=== PATIENT | male | born 1955 | race Caucasian/White ===

== ENCOUNTER 2020-11-02 11:45 | Day surgery (SDC) | payer MEDICARE, OTHER ==
[2020-10-29 09:33] LABS: BASOPHILS # (AUTO) 0.1 X10'3 (0-0.2); BASOPHILS % (AUTO) 0.7 % (0-1); EOSINOPHILS # (AUTO) 0.1 X10'3 (0-0.9); EOSINOPHILS % (AUTO) 1.4 % (0-6); HEMATOCRIT 47.8 % (42.0-52.0); HEMOGLOBIN 16.1 g/dl (14.0-17.9); LYMPHOCYTES # (AUTO) 2.5 X10'3 (1.1-4.8); LYMPHOCYTES % (AUTO) 28.8 % (21-51); MEAN CORPUSCULAR HEMOGLOBIN 30.4 PG (27.0-31.0); MEAN CORPUSCULAR HGB CONC 33.6 g/dL (33.0-36.5); MEAN CORPUSCULAR VOLUME 90.5 FL (78-98); MEAN PLATELET VOLUME 9.2 FL (7.4-10.4); MONOCYTES # (AUTO) 0.7 X10'3 (0-0.9); MONOCYTES % (AUTO) 8.1 % (2-12); NEUTROPHILS # (AUTO) 5.2 X10'3 (1.8-7.7); PLATELET COUNT 256 X10'3 (140-440); RED BLOOD COUNT 5.28 X10'6 (4.70-6.10); RED CELL DISTRIBUTION WIDTH 13.6 % (11.5-14.5); WHITE BLOOD COUNT 8.6 X10'3 (4.5-11.0)
[2020-10-29 09:46] LABS: ALBUMIN 3.8 G/DL (3.4-5.0); ANION GAP 7 (8-16); BLOOD UREA NITROGEN 22 MG/DL (7-18); CALCIUM 8.6 MG/DL (8.5-10.1); CHLORIDE 105 MMOL/L (99-107); CREATININE 1.05 MG/DL (0.60-1.10); GLUCOSE 139 MG/DL (70-104); POTASSIUM 4.5 MMOL/L (3.5-5.1); SODIUM 137 MMOL/L (135-145); TOTAL CARBON DIOXIDE 24.6 MMOL/L (24-32); eGFR 71 ML/MIN
[2020-10-29 09:47] LABS: PARTIAL THROMBOPLASTIN TIME 27 SECONDS (22-32)
[~2020-11-02] VITALS: Ht 165.1 cm; Wt 114.1 kg
[2020-11-02] MEDS ORDERED: normal saline 1,000 ML IV SCH (12:10)
[2020-11-02] MEDS ORDERED: diphenhydrAMINE 25mg capsule PO PRN (12:10)
[2020-11-02] MEDS ORDERED: FENO145T25 PO (12:10)
[2020-11-02] MEDS ORDERED: LORazepam 0.5 MG tablet PO PRN (12:10)
[2020-11-02] MEDS ORDERED: METF-950 PO (12:10)
[2020-11-02] MEDS ORDERED: LIDOcaine/PRILOcaine 5gm cream TP ONE (12:10)
[2020-11-02] MEDS ORDERED: METO25TA6 PO (12:12)
[2020-11-02] MEDS ORDERED: NITR0.4T48 SL (12:12)
[2020-11-02] MEDS ORDERED: ASPI-611 PO (12:12)
[2020-11-02 12:13] VITALS: BP 137/55
[2020-11-02] MEDS ORDERED: LIDOcaine 1% (10mg/ml) 2ml vial ONE (12:22)
[2020-11-02] MEDS ORDERED: verapamil 2.5 mg/ml inj IV ONE (13:10)
[2020-11-02] MEDS ORDERED: nitroGLYCERIN-Tridil 50MG/D5W 250 ML IV ONE (13:10)
[2020-11-02] MEDS ORDERED: fentaNYL/PF 50MCG/1 ML 2ML syringe ONE (13:11)
[2020-11-02] MEDS ORDERED: iohexol 350MG/ML 100ml bottle IV ONE (13:11)
[2020-11-02] MEDS ORDERED: heparin 1,000unit/ml 10ml vial 10 ML ONE (13:11)
[2020-11-02] MEDS ORDERED: LIDOcaine 1% (10mg/ml)w/preservative injection 20ml MDV ONE (13:11)
[2020-11-02] MEDS ORDERED: midazolam 2 mg/2 ml injection ONE (13:11)
[2020-11-02 14:03] VITALS: BP 155/67
[2020-11-02 14:16] VITALS: BP 173/69
[2020-11-02 14:31] VITALS: BP 127/54
[2020-11-02 14:45] VITALS: BP 127/50
== END 2020-11-02 15:10 | disposition home or self-care (01) ==
LOC: SSTAY O 11:45
PROVIDERS: ATTEND Internal Medicine Interventional Cardiology
DX: R94.39 Abnormal result of other cardiovascular function study (principal); R06.02 Shortness of breath; I25.10 Atherosclerotic heart disease of native coronary artery without angina pectoris; I25.82 Chronic total occlusion of coronary artery; G47.33 Obstructive sleep apnea (adult) (pediatric); E78.5 Hyperlipidemia, unspecified; E11.9 Type 2 diabetes mellitus without complications; I65.22 Occlusion and stenosis of left carotid artery; I27.20 Pulmonary hypertension, unspecified; Z87.891 Personal history of nicotine dependence; Z88.0 Allergy status to penicillin; Z79.84 Long term (current) use of oral hypoglycemic drugs; Z79.899 Other long term (current) drug therapy; Z79.82 Long term (current) use of aspirin; Z79.01 Long term (current) use of anticoagulants; Z82.49 Family history of ischemic heart disease and other diseases of the circulatory system
CPT/HCPCS: 36415; 80048; 82948; 85025; 85610; 85730; 93005; 93458; 99152; C1769; C1894; J1644; J2001; J2250; J3010; J7030; Q0163; Q9967; 99153; A4620; A5120; A6258; J3490

== ENCOUNTER 2022-01-08 14:21 | Inpatient (IN) | payer MEDICARE, OTHER ==
[~2022-01-08] VITALS: Ht 167.6 cm; Wt 109.9 kg
[~2022-01-08 14:21] MED LIST: ASPI-611 PO; FENO145T25 PO; LOP25T PO; METF-1203 PO; NITR0.4T48 SL
[2022-01-08 15:07] LABS: BASOPHILS # (AUTO) 0.1 X10'3 (0-0.2); BASOPHILS % (AUTO) 0.4 % (0-1); EOSINOPHILS # (AUTO) 0.2 X10'3 (0-0.9); EOSINOPHILS % (AUTO) 1.7 % (0-6); HEMATOCRIT 47.3 % (42.0-52.0); HEMOGLOBIN 15.9 g/dl (14.0-17.9); LYMPHOCYTES # (AUTO) 3.2 X10'3 (1.1-4.8); LYMPHOCYTES % (AUTO) 22.5 % (21-51); MEAN CORPUSCULAR HEMOGLOBIN 30.6 PG (27.0-31.0); MEAN CORPUSCULAR HGB CONC 33.6 g/dL (33.0-36.5); MEAN CORPUSCULAR VOLUME 91.1 FL (78-98); MEAN PLATELET VOLUME 8.9 FL (7.4-10.4); NEUTROPHILS # (AUTO) 9.6 X10'3 (1.8-7.7); NEUTROPHILS % (AUTO) 68.4 % (42-75); PLATELET COUNT 253 X10'3 (140-440); RED CELL DISTRIBUTION WIDTH 13.8 % (11.5-14.5)
[2022-01-08 15:11] LABS: ALANINE AMINOTRANSFERASE 40 U/L (12-78); ALBUMIN 4.2 G/DL (3.4-5.0); ALBUMIN/GLOBULIN RATIO 1.3 (1.1-1.5); ALKALINE PHOSPHATASE 41 IU/L (46-116); ANION GAP 8 (8-16); ASPARTATE AMINO TRANSFERASE 57 U/L (10-37); BILIRUBIN,TOTAL 0.3 MG/DL (0.1-1.0); BLOOD UREA NITROGEN 26 MG/DL (7-18); BUN/CREATININE RATIO 26.3 (5.4-32.0); CALCIUM 8.8 MG/DL (8.5-10.1); CHLORIDE 108 MMOL/L (99-107); CREATININE 0.99 MG/DL (0.60-1.10); GLUCOSE 132 MG/DL (70-104); POTASSIUM 4.3 MMOL/L (3.5-5.1); SODIUM 140 MMOL/L (135-145); TOTAL CARBON DIOXIDE 23.7 MMOL/L (24-32); TOTAL PROTEIN 7.5 G/DL (6.4-8.2); eGFR 75 ML/MIN
[2022-01-08] MEDS ORDERED: enoxaparin 100mg/ml syringe SUBCUT ONE (15:25)
[2022-01-08] MEDS ORDERED: normal saline 1000ML IV soln IVB ONE (15:35)
[2022-01-08] MEDS ORDERED: heparin 10,000 units/1 ML INJ IV ONE ×2 (15:40→16:20)
[2022-01-08] MEDS ORDERED: MESSAGE TO PHARMACY PO ONE (16:20)
[2022-01-08] MEDS ORDERED: acetaminophen 325mg tablet PO PRN (16:20)
[2022-01-08] MEDS ORDERED: nitroGLYCERIN 0.4mg SUBLingual tab SL PRN (16:20)
[2022-01-08] MEDS ORDERED: insulin Lispro (HumaLOG) vial - multi-dose SQ SCH (16:20)
[2022-01-08] MEDS ORDERED: HYDROcodone/acetaminophen 5mg/325mg tablet PO PRN (16:20)
[2022-01-08] MEDS ORDERED: PERFLUTREN PROTEIN-A MICROSPHR (Optison) 0.22 MG/ML 3ML VIAL IV ONE (16:20)
[2022-01-08] MEDS ORDERED: heparin 25,000 UNIT/250ml bag 250 ML IV SCH (16:20)
[2022-01-08] MEDS ORDERED: mag hydrox/Alum hydrox/simeth 30ml oral suspension PO PRN (16:20)
[2022-01-08] MEDS ORDERED: magnesium 2GM in 50ml NS 50 ML IV PRN (16:20)
[2022-01-08] MEDS ORDERED: magnesium hydroxide 30ml (MOM) UD suspension PO PRN (16:20)
[2022-01-08] MEDS ORDERED: heparin 10,000 units/1 ML INJ IV PRN (16:20)
[2022-01-08] MEDS ORDERED: potassium CL 10mEq/100ml bag 100 ML IV PRN (16:20)
[2022-01-08] MEDS ORDERED: metoprolol tartrate 1mg/ml inj IV PRN (16:20)
[2022-01-08] MEDS ORDERED: regadenoson 0.4mg/5ml syringe IV PRN (16:20)
[2022-01-08] MEDS ORDERED: naloxone 0.4 mg/ml inj IV PRN (16:20)
[2022-01-08] MEDS ORDERED: aminophylline 500mg/20ml vial IV PRN (16:20)
[2022-01-08] MEDS ORDERED: ondansetron/PF 4mg/2ml inj IV PRN (16:20)
[2022-01-08] MEDS ORDERED: potassium Cl 20 mEq SR tablet PO PRN ×2 (16:20)
[2022-01-08] MEDS ORDERED: dextrose 50%-water 50ml dispensing syringe IV PRN ×2 (16:20)
[2022-01-08] MEDS ORDERED: glucagon, human recombinant 1mg kit SUBCUT PRN (16:20)
[2022-01-08] MEDS ORDERED: magnesium 4gm in 100ml NS 100 ML IV PRN (16:20)
[2022-01-08] MEDS ORDERED: DEXTROSE 15 GM of carb/4 tabs (each vial/BOTTLE has 4 tablets) PO PRN ×2 (16:20)
[2022-01-08] MEDS ORDERED: HYDROcodone/acetaminophen 10/325mg tab PO PRN (16:20)
[2022-01-08] MEDS ORDERED: nitroGLYCERIN 0.4mg/hour patch TD ONE (16:25)
[2022-01-08] MEDS: aspirin 81mg tab.chew PO SCH (16:36)
[2022-01-08] MEDS ORDERED: ATOR40TA72 PO (16:46)
[2022-01-08] MEDS ORDERED: LOSA50TA64 PO (16:46)
[2022-01-08] MEDS ORDERED: FURO20TA4 PO (17:23)
[2022-01-08] MEDS: heparin 25,000 UNIT/250ml bag 250 ML IV SCH (17:23)
[2022-01-08] MEDS ORDERED: METF-436 PO (17:24)
[2022-01-08] MEDS ORDERED: carVEDilol 3.125mg tablet PO ONE (17:32)
[2022-01-08] MEDS: losartan 50mg tablet PO SCH (18:26)
--- NOTE | 2022-01-08 18:57 | NUR ---
troponin [id number] per lab. Current value decreased from previous
[2022-01-08] MEDS: docusate sod 100mg capsule PO SCH (20:00)
[2022-01-08] MEDS: K and/or MAG REPLACEMENT MC SCH (20:00)
[2022-01-08] MEDS: insulin glargine (Lantus) pen - multi-dose SQ SCH (21:00)
[2022-01-09] VITALS (13 sets, daily range): BP systolic 103–144; BP diastolic 5–93
[2022-01-09] MEDS: heparin 10,000 units/1 ML INJ IV PRN ×2 (05:21→16:07)
[2022-01-09 05:58] LABS: CLARITY,URINE CLEAR (Clear); COLOR,URINE YELLOW (Yellow); GLUCOSE, URINE NEGATIVE (Neg); KETONES,URINE NEGATIVE (Neg); LEUKOCYTE ESTERASE ,URINE NEGATIVE (Neg); NITRITES, URINE NEGATIVE (Neg); OCCULT BLOOD,URINE NEGATIVE (Neg); PH,URINE 5.5 (4.8-8.0); PROTEIN,URINE NEGATIVE (Neg); UROBILINOGEN,URINE 0.2 E.U/dL (0.2-1.0)
[2022-01-09 06:04] LABS: UA COLLECTION TYPE NON-SPECIFIED
[2022-01-09 07:04] LABS: BASOPHILS % (AUTO) 0.2 % (0-1); EOSINOPHILS # (AUTO) 0.2 X10'3 (0-0.9); EOSINOPHILS % (AUTO) 1.8 % (0-6); HEMATOCRIT 43.2 % (42.0-52.0); HEMOGLOBIN 14.5 g/dl (14.0-17.9); LYMPHOCYTES # (AUTO) 2.3 X10'3 (1.1-4.8); LYMPHOCYTES % (AUTO) 22.7 % (21-51); MEAN CORPUSCULAR HEMOGLOBIN 30.5 PG (27.0-31.0); MEAN CORPUSCULAR HGB CONC 33.6 g/dL (33.0-36.5); MEAN CORPUSCULAR VOLUME 90.7 FL (78-98); MEAN PLATELET VOLUME 8.8 FL (7.4-10.4); MONOCYTES # (AUTO) 0.7 X10'3 (0-0.9); MONOCYTES % (AUTO) 7.3 % (2-12); NEUTROPHILS # (AUTO) 6.9 X10'3 (1.8-7.7); PLATELET COUNT 228 X10'3 (140-440); RED BLOOD COUNT 4.76 X10'6 (4.70-6.10); WHITE BLOOD COUNT 10.2 X10'3 (4.5-11.0)
[2022-01-09] MEDS: atorvastatin 20mg tablet PO SCH (07:24)
[2022-01-09] MEDS: fenofibrate 145mg tablet PO SCH (07:24)
[2022-01-09] MEDS: aspirin 81mg tab.chew PO SCH (07:24)
[2022-01-09] MEDS: losartan 50mg tablet PO SCH (07:24)
[2022-01-09] MEDS: K and/or MAG REPLACEMENT MC SCH ×2 (08:00→18:31)
[2022-01-09] MEDS: docusate sod 100mg capsule PO SCH ×2 (08:00→19:56)
[2022-01-09] MEDS: nitroGLYCERIN 0.4mg/hour patch TD SCH (08:00)
[2022-01-09] MEDS ORDERED: aspirin 81mg tab.chew PO SCH (08:30)
[2022-01-09 08:41] LABS: ALANINE AMINOTRANSFERASE 39 U/L (12-78); ALBUMIN 3.7 G/DL (3.4-5.0); ALBUMIN/GLOBULIN RATIO 1.3 (1.1-1.5); ALKALINE PHOSPHATASE 35 IU/L (46-116); ANION GAP 8 (8-16); ASPARTATE AMINO TRANSFERASE 43 U/L (10-37); BILIRUBIN,TOTAL 0.6 MG/DL (0.1-1.0); BLOOD UREA NITROGEN 18 MG/DL (7-18); BUN/CREATININE RATIO 20.7 (5.4-32.0); CALCIUM 8.3 MG/DL (8.5-10.1); CHLORIDE 106 MMOL/L (99-107); CHOL/HDL RATIO 4.5 (0.00-4.99); CHOLESTEROL 95 MG/DL (0-200); CREATININE 0.87 MG/DL (0.60-1.10); GLUCOSE 139 MG/DL (70-104); HDL CHOLESTEROL 21 MG/DL (35-60); LDL CHOLESTEROL 62 MG/DL (50-100); MAGNESIUM 1.7 MG/DL (1.5-2.4); POTASSIUM 4.3 MMOL/L (3.5-5.1); SODIUM 136 MMOL/L (135-145); TOTAL CARBON DIOXIDE 22.3 MMOL/L (24-32); TOTAL PROTEIN 6.6 G/DL (6.4-8.2); TRIGLYCERIDES 101 MG/DL (20-135); eGFR 88 ML/MIN
--- NOTE | 2022-01-09 10:16 | NUR ---
Diabetes consult: Noted pt w/ hx of DM A1c 7. Written DM w/ RD contact info placed in pt chart Addendum: 01/09/22 at [address] Amended: Links added.
[2022-01-09] MEDS: insulin glargine (Lantus) pen - multi-dose SQ SCH (20:09)
[2022-01-10 02:00] VITALS: BP 114/69
[2022-01-10 04:35] LABS: BASOPHILS # (AUTO) 0.1 X10'3 (0-0.2); BASOPHILS % (AUTO) 1.3 % (0-1); EOSINOPHILS # (AUTO) 0.2 X10'3 (0-0.9); HEMATOCRIT 42.9 % (42.0-52.0); HEMOGLOBIN 14.3 g/dl (14.0-17.9); LYMPHOCYTES # (AUTO) 2.5 X10'3 (1.1-4.8); LYMPHOCYTES % (AUTO) 25.7 % (21-51); MEAN CORPUSCULAR HGB CONC 33.3 g/dL (33.0-36.5); MEAN CORPUSCULAR VOLUME 90.1 FL (78-98); MONOCYTES # (AUTO) 0.7 X10'3 (0-0.9); MONOCYTES % (AUTO) 7.6 % (2-12); NEUTROPHILS # (AUTO) 6.1 X10'3 (1.8-7.7); NEUTROPHILS % (AUTO) 63.4 % (42-75); PLATELET COUNT 238 X10'3 (140-440); RED BLOOD COUNT 4.76 X10'6 (4.70-6.10); RED CELL DISTRIBUTION WIDTH 13.9 % (11.5-14.5); WHITE BLOOD COUNT 9.6 X10'3 (4.5-11.0)
[2022-01-10 04:43] LABS: ALANINE AMINOTRANSFERASE 29 U/L (12-78); ALBUMIN 3.3 G/DL (3.4-5.0); ALBUMIN/GLOBULIN RATIO 1.1 (1.1-1.5); ALKALINE PHOSPHATASE 33 IU/L (46-116); ANION GAP 10 (8-16); ASPARTATE AMINO TRANSFERASE 24 U/L (10-37); BILIRUBIN,TOTAL 0.5 MG/DL (0.1-1.0); BLOOD UREA NITROGEN 18 MG/DL (7-18); BUN/CREATININE RATIO 20.5 (5.4-32.0); CALCIUM 8.6 MG/DL (8.5-10.1); CHLORIDE 105 MMOL/L (99-107); CREATININE 0.88 MG/DL (0.60-1.10); GLUCOSE 139 MG/DL (70-104); MAGNESIUM 1.7 MG/DL (1.5-2.4); POTASSIUM 4.4 MMOL/L (3.5-5.1); SODIUM 139 MMOL/L (135-145); TOTAL CARBON DIOXIDE 23.7 MMOL/L (24-32); TOTAL PROTEIN 6.4 G/DL (6.4-8.2); eGFR 86 ML/MIN
[2022-01-10 06:00] VITALS: BP 179/83
[2022-01-10] MEDS: K and/or MAG REPLACEMENT MC SCH (08:00)
[2022-01-10] MEDS: docusate sod 100mg capsule PO SCH (08:00)
[2022-01-10] MEDS: losartan 50mg tablet PO SCH (08:00)
[2022-01-10] MEDS: fenofibrate 145mg tablet PO SCH (08:00)
[2022-01-10] MEDS: atorvastatin 20mg tablet PO SCH (09:15)
[2022-01-10] MEDS: aspirin 81mg tab.chew PO SCH (09:15)
[2022-01-10] MEDS: nitroGLYCERIN 0.4mg/hour patch TD SCH (09:16)
[2022-01-10] MEDS: heparin 25,000 UNIT/250ml bag 250 ML IV SCH (09:27)
[2022-01-10] MEDS ORDERED: metoprolol tartrate 12.5mg (1/2 tablet) PO SCH (09:35)
[2022-01-10] MEDS ORDERED: LOP12.5T PO (10:21)
[2022-01-10] MEDS ORDERED: ASPI81TA53 PO (10:21)
[2022-01-10 11:00] VITALS: BP 147/78
[2022-01-10 12:16] VITALS: BP_SYST 147
== END 2022-01-10 12:30 | disposition home or self-care (01) | DRG 281 ==
LOC: ER 14:21 → ED HOLD 16:23 → EDBEDREQ 01-09 04:22 → PCU 3S 01-09 05:35
PROVIDERS: ADMIT Family Medicine; ATTEND Family Medicine
PROC: 4A02XM4 Measurement of Cardiac Total Activity, External Approach (ICD-10-PCS; principal; 2022-01-09)
PROC: 3E033HZ Introduction of Radioactive Substance into Peripheral Vein, Percutaneous Approach (ICD-10-PCS; 2022-01-09)
DX: I21.4 Non-ST elevation (NSTEMI) myocardial infarction (principal); I50.32 Chronic diastolic (congestive) heart failure; D72.829 Elevated white blood cell count, unspecified; E11.9 Type 2 diabetes mellitus without complications; E78.5 Hyperlipidemia, unspecified; I11.0 Hypertensive heart disease with heart failure; I25.10 Atherosclerotic heart disease of native coronary artery without angina pectoris; F17.220 Nicotine dependence, chewing tobacco, uncomplicated; Z79.82 Long term (current) use of aspirin; I25.2 Old myocardial infarction; Z79.84 Long term (current) use of oral hypoglycemic drugs; Z79.899 Other long term (current) drug therapy; Z88.0 Allergy status to penicillin; Z98.61 Coronary angioplasty status; Z71.6 Tobacco abuse counseling
CPT/HCPCS: 36415; 71045; 78451; 78452; 80053; 80061; 81003; 82948; 83036; 83735; 83880; 84145; 84484; 85025; 85610; 85730; 87081; 93005; 93017; 93306; 99285; A9500; G0378; J1644; J1815; J2785; J7030